=== PATIENT | male | born 1970 | race Caucasian/White ===

== ENCOUNTER 2016-12-01 12:05 | Emergency (ER) | payer BC ==
[2016-12-01 12:08] VITALS: BP 153/100
[2016-12-01] MEDS ORDERED: Lidocaine 1% with EPINEPHrine 1:100,000 20 ML MDV INJECT ONE (12:13)
--- NOTE | 2016-12-01 12:56 | EDM.PDOC ---
ED HPI GENERAL MEDICAL PROBLEM - General Chief Complaint: Laceration Stated Complaint: laceration Time Seen by Provider: 12/01/16 12:30 Source of Information: Reports: Patient History Limitations: Reports: No Limitations - History of Present Illness INITIAL COMMENTS - FREE TEXT/NARRATIVE: Patient states [employer] was out cutting down tree limb that caused him to fall down injuring and lacerating chin on rim of bucket truck. Denies LOC affirms witnessed event and no other injury noted. He presents for laceration repair. 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 Lower Face Pain Score (Numeric/FACES): 5 - Related Data Allergies Allergy/AdvReac Type Severity Reaction Status Date / Time No Known Allergies Allergy Verified 12/01/16 12:08 Home Meds: Home Meds Aspirin [Adult Low Dose Aspirin EC] 81 mg PO DAILY 12/01/16 [History] Loratadine [Claritin] 10 mg PO DAILY 12/01/16 [History] Multivitamin [Multi-Vitamin Daily] 1 tab PO DAILY 12/01/16 [History] Social & Family History - Tobacco Use Smoking Status *Q: Never Smoker - Caffeine Use Caffeine Use: Reports: Coffee, Soda - Alcohol Use Days Per Week of Alcohol Use: 7 Number of Drinks Per Day: 1 Total Drinks Per Week: 7 - Recreational Drug Use Recreational Drug Use: No - Living Situation & Occupation Living situation: Reports: Occupation: Employed ([employer]) ED ROS GENERAL - Review of Systems Review Of Systems: See Below Constitutional: Reports: No Symptoms HEENT: Reports: Other (Chin Laceration 3cm) Respiratory: Reports: No Symptoms Cardiovascular: Reports: No Symptoms Endocrine: Reports: No Symptoms GI/Abdominal: Reports: No Symptoms : Reports: No Symptoms Musculoskeletal: Reports: No Symptoms Skin: Reports: Other (3 cm simple laceration of chin) Neurological: Reports: No Symptoms Psychiatric: Reports: No Symptoms Hematologic/Lymphatic: Reports: No Symptoms Immunologic: Reports: No Symptoms (Tdap is upto date) ED EXAM, SKIN/RASH Exam: See Below Exam Limited By: No Limitations General Appearance: Alert, WD/WN, No Apparent Distress Eye Exam: Bilateral Eye: Normal Fundi, Normal Inspection Ears: Normal External Exam, Normal Canal, Hearing Grossly Normal, Normal TMs Nose: Normal Inspection, Normal Mucosa, No Blood Throat/Mouth: Normal Inspection, Normal Lips, Normal Teeth, Normal Gums, Normal Oropharynx, Normal Voice, No Airway Compromise Head: Atraumatic, Normocephalic Neck: Normal Inspection, Supple, Non-Tender, Full Range of Motion Respiratory/Chest: No Respiratory Distress, Lungs Clear, Normal Breath Sounds, No Accessory Muscle Use, Chest Non-Tender Cardiovascular: Normal Peripheral Pulses, Regular Rate, Rhythm, No Edema, No Gallop, No JVD, No Murmur, No Rub GI/Abdominal: Normal Bowel Sounds, Soft, Non-Tender, No Organomegaly, No Distention, No Abnormal Bruit, No Mass (Male) Exam: No Hernia, Normal Inspection, Normal Prostate, Circumcised Rectal (Males) Exam: Normal Exam, Normal Rectal Tone, Prostate Normal Back Exam: Normal Inspection, Full Range of Motion, NT Extremities: Normal Inspection, Normal Range of Motion, Non-Tender, No Pedal Edema, Normal Capillary Refill Neurological: Alert, Oriented, CN II-XII Intact, Normal Cognition, Normal Gait, Normal Reflexes, No Motor/Sensory Deficits Psychiatric: Normal Affect, Normal Mood Skin: Other (3 cm laceration of chin) Location, Skin: Other (Chin 3 cm simple laceration) Lymphatic: No Adenopathy ED SKIN PROCEDURES - Laceration/Wound Repair Face Lac/Wound length In cm: 3 Appearance: Superficial, Clean Distal NVT: Neuro & Vascular Intact, No Tendon Injury Anesthetic Type: Local Local Anesthesia - Lidocaine (Xylocaine): 2% with EPI Local Anesthetic Volume: 4cc Skin Prep: Providone-Iodine (Betadine), Saline, Sterile Drape Saline Irrigation (cc's): 25 Exploration/Debridement/Repair: Wound Explored, In a Bloodless Field, Explored to Base Closed with: Steri-Strips Suture Size: 4-0 # of Sutures: 1 Suture Type: Nylon Sterile Dressing Applied: Provider Tetanus Status Addressed: Yes Complications: No Course - Vital Signs Last Recorded V/S: Last Vital Signs Temp 36.4 C 12/01/16 12:05 Pulse 99 12/01/16 12:05 Resp 18 12/01/16 12:05 BP 153/100 H 12/01/16 12:05 Pulse Ox 97 12/01/16 12:05 - Orders/Labs/Meds Meds: Medications Discontinued Medications Generic Name Dose Route Start Last Admin Trade Name Zoie PRN Reason Stop Dose Admin Lidocaine/Epinephrine 20 ml 12/01/16 12:13 Xylocaine 1% With Epinephrine 1:100,000 INJECT 12/01/16 12:14 ONETIME ONE Departure - Departure Time of Disposition: 13:02 Disposition: Home, Self-Care 01 Condition: Good Clinical Impression: Laceration - Discharge Information Instructions: Laceration Care, Adult, [id number], Stitches, [place], or Adhesive Wound Closure, [id number] Additional Instructions: NSAIDS in form of tylenol r ibuprofen for pain. Keep clean and dry. Suture remvoal 7-10 days. F/U PCP See take home sheet for further instructions. - Problem List & Annotations (1) Laceration SNOMED Code(s): 794903368 Code(s): UPT2372 - Status: Acute Current Visit: Yes - Problem List Review Problem List Initiated/Reviewed/Updated: Yes - Assessment/Plan Assessment:: Simple Laceration chin Plan: Prepped and draped usual fashion. Simple laceration repair completed without incidence. 7 suture Steri strips applied. Advised and discharge for suture removal in 7-10 days. Keep clean and dry-avaid getting wet. Monitor for increased pain, redness or infection.
== END 2016-12-01 13:12 | disposition home or self-care (01) ==
LOC: CC.ED 12:05
DX: S01.81XA Laceration without foreign body of other part of head, initial encounter (principal); Z79.82 Long term (current) use of aspirin; Z79.899 Other long term (current) drug therapy; W01.198A Fall on same level from slipping, tripping and stumbling with subsequent striking against other object, initial encounter; Y93.89 Activity, other specified
CPT/HCPCS: 12013; 96372; 99282

== ENCOUNTER 2019-10-10 21:08 | Emergency (ER) | payer BC ==
[2019-10-10] MEDS ORDERED: Ketorolac 10 MG Tab PO ONE (21:09)
[2019-10-10] MEDS ORDERED: Cyclobenzaprine 10 MG Tab PO ONE (21:09)
[2019-10-10] MEDS ORDERED: Take Home: Cyclobenzaprine 10 MG Tab, 4 Tab Pack PO ONE (21:20)
[2019-10-10] MEDS ORDERED: Take Home: Ketorolac 10 MG Tab, 4 Tab Pack PO ONE (21:20)
--- NOTE | 2019-10-10 21:24 | EDM.PDOC ---
ED HPI GENERAL MEDICAL PROBLEM - General Chief Complaint: Back Pain or Injury Stated Complaint: "Back pain" Time Seen by Provider: 10/10/19 21:10 Source of Information: Reports: Patient History Limitations: Reports: No Limitations - History of Present Illness INITIAL COMMENTS - FREE TEXT/NARRATIVE: Patient to the emergency department where they were cutting down a tree a few da ys ago and he is developed pain in the left lower back area patient advises that there is no numbness or tingling he has had the symptoms before but affecting more of the right side about 10 years ago. The patient has no problems voiding or having a bowel movement no perianal rectal numbness. The patient has no abdominal pain no nausea no vomiting no fever chills no other symptoms Onset: Other (Symptoms x2 days) Duration: Day(s): Location: Reports: Back Quality: Reports: Ache Severity: Moderate Improves with: Reports: None Worsens with: Reports: Movement Context: Reports: Other (Was cutting down a tree) Associated Symptoms: Denies: Chest Pain, Fever/Chills, Headaches, Nausea/Vomiting, Shortness of Breath, Weakness Treatments HEALTH ADVISOR: Reports: NSAIDS - Related Data Allergies Allergy/AdvReac Type Severity Reaction Status Date / Time No Known Allergies Allergy Verified 10/10/19 21:14 Home Meds: Home Meds Aspirin [Adult Low Dose Aspirin EC] 81 mg PO DAILY 12/01/16 [History] Loratadine [Claritin] 10 mg PO DAILY 12/01/16 [History] Multivitamin [Multi-Vitamin Daily] 1 tab PO DAILY 12/01/16 [History] Ketorolac [Toradol] 10 mg PO TID PRN 5 Days #15 tab 10/10/19 [Rx] methocarbamoL [Robaxin] 500 mg PO TID 10 Days #30 tab 10/10/19 [Rx] Social & Family History - Caffeine Use Caffeine Use: Reports: Coffee, Soda - Living Situation & Occupation Living situation: Reports: Occupation: Employed ([employer]) ED ROS GENERAL - Review of Systems Review Of Systems: See Below Constitutional: Reports: No Symptoms. Denies: Fever, Chills HEENT: Reports: No Symptoms Respiratory: Reports: No Symptoms. Denies: Shortness of Breath Cardiovascular: Reports: No Symptoms. Denies: Chest Pain GI/Abdominal: Reports: No Symptoms. Denies: Abdominal Pain, Constipation, Diarrhea, Nausea, Vomiting : Reports: No Symptoms. Denies: Dysuria Musculoskeletal: Reports: Back Pain. Denies: Neck Pain Skin: Reports: No Symptoms Neurological: Reports: No Symptoms. Denies: Numbness, Tingling, Weakness Psychiatric: Reports: No Symptoms ED EXAM,LOWER BACK PAIN/INJURY - Physical Exam Exam: See Below Exam Limited By: No Limitations General Appearance: Alert, WD/WN, No Apparent Distress Head: Atraumatic, Normocephalic Neck: Normal Inspection, Supple, Non-Tender, Full Range of Motion Respiratory/Chest: No Respiratory Distress, Lungs Clear, Normal Breath Sounds, Chest Non-Tender Cardiovascular: Normal Peripheral Pulses, Regular Rate, Rhythm, No Murmur GI/Abdominal: Normal Bowel Sounds, Soft, Non-Tender Back Exam: Normal Inspection, Muscle Spasm (left lower back) Extremities: Normal Inspection, Normal Range of Motion, Non-Tender, Normal Capillary Refill Neurological: Alert, Normal Mood/Affect, Normal Gait, Normal Reflexes, No Motor/Sensory Deficits, Oriented x 3 Psychiatric: Normal Affect, Normal Mood Skin Exam: Warm, Dry, Intact, Normal Color Course - Vital Signs Text/Narrative:: The patient was evaluated emergency department it appears that the patient has a lumbar strain, no imaging is necessary at this point. However, I did advise the patient if symptoms persist he might need to follow-up as further studies such as possible MRI or other modalities might be needed. The patient will be given take-home medicine of Flexeril and ketorolac and a prescription of Robaxin and ketorolac is been called to the patient's pharmacy the patient is to follow-up with his family doctor this coming week and return emergency department sooner if worsening problems - Orders/Labs/Meds Meds: Medications Discontinued Medications Generic Name Dose Route Start Last Admin Trade Name Freq PRN Reason Stop Dose Admin Cyclobenzaprine HCl 2 packet 10/10/19 21:20 Take Home: Cyclobenzaprine 10 Mg, 4 Tab Pack PO 10/10/19 21:21 ONETIME ONE Ketorolac Tromethamine 2 packet 10/10/19 21:20 Take Home: Ketorolac 10 Mg, 4 Tab Pack PO 10/10/19 21:21 ONETIME ONE Departure - Departure Time of Disposition: 21:21 Disposition: Home, Self-Care 01 Condition: Good Clinical Impression: Lumbar strain - Discharge Information *PRESCRIPTION DRUG MONITORING PROGRAM REVIEWED*: Not Applicable *COPY OF PRESCRIPTION DRUG MONITORING REPORT IN PATIENT AMANDA: Not Applicable Prescriptions: methocarbamoL [Robaxin] 500 mg PO TID 10 Days #30 tab Ketorolac [Toradol] 10 mg PO TID PRN 5 Days #15 tab PRN Reason: Pain (Moderate 4-6) Instructions: Lumbar Sprain Forms: ED Department Discharge Additional Instructions: increase fluids rest heat off and on follow up with your family doctor this week return to ER sooner if worse or problems - Problem List & Annotations (1) Lumbar strain SNOMED Code(s): 055644870 Code(s): S39.012A - STRAIN OF MUSCLE, FASCIA AND TENDON OF LOWER BACK, INIT Status: Acute Priority: Medium Qualifiers: Encounter type: initial encounter Qualified Code(s): S39.012A - Strain of muscle, fascia and tendon of lower back, initial encounter - Problem List Review Problem List Initiated/Reviewed/Updated: Yes - Assessment/Plan Plan: The patient's past medical history, past surgical history, social history and past family medical history is been reviewed see the nursing notes for details
[2019-10-10 21:56] VITALS: BP 150/91; PULSE 73
== END 2019-10-10 21:30 | disposition home or self-care (01) ==
LOC: CC.ED 21:08
DX: S39.012A Strain of muscle, fascia and tendon of lower back, initial encounter (principal); Z79.82 Long term (current) use of aspirin; Z79.899 Other long term (current) drug therapy; X50.9XXA Other and unspecified overexertion or strenuous movements or postures, initial encounter
CPT/HCPCS: 99283; A9270-GY